=== PATIENT | female | born 1980 | race Caucasian/White ===

== ENCOUNTER 2018-11-07 11:30 | Emergency (ER) | payer OTHER ==
[2018-11-07] MEDS ORDERED: Ketorolac 60 MG/2 ML SDV IM ONE (12:42)
--- NOTE | 2018-11-07 12:42 | EDM.PDOC ---
ED HPI GENERAL MEDICAL PROBLEM - General Chief Complaint: Chest Pain Stated Complaint: CHEST PAIN Time Seen by Provider: 11/07/18 12:39 Source of Information: Reports: Patient History Limitations: Reports: No Limitations - History of Present Illness INITIAL COMMENTS - FREE TEXT/NARRATIVE: PT ARRIVED STATING THAT LAST NITE SHE STARTED TO HURT ON HER RT COSTAL STERNAL AREA. tODAY THAT STARTED TO MOVE ACCROSS HER CHEST. sHE DOES HAVE PAIN WITH DEEP BREATHING. Onset: Other ( STARTED LAST NITE. ) Duration: Hour(s): Location: Reports: Chest, Other ( sHE HAS A HISTORY OF PREVIOS PLEURISY. ) Quality: Reports: Burning Chest Pain Score (Numeric/FACES): 6 - Related Data Allergies Allergy/AdvReac Type Severity Reaction Status Date / Time oxycodone Allergy Vomiting Verified 11/07/18 11:54 Penicillins Allergy Hives Verified 11/07/18 11:54 Home Meds: Home Meds NK [No Known Home Meds] 11/07/18 [History] Past Medical History HEENT History: Reports: Other (See Below) Other HEENT History: narrowed sinus passage Cardiovascular History: Reports: Other (See Below) Other Cardiovascular History: hx of pleurisy [employer] History: Reports: Neurological History: Reports: Concussion Endocrine/Metabolic History: Reports: Hypothyroidism Other Endocrine/Metabolic History: Tad's - Past Surgical History HEENT Surgical History: Reports: Myringotomy w Tube(s) Female Surgical History: Reports: Section Social & Family History - Tobacco Use Smoking Status *Q: Never Smoker - Recreational Drug Use Recreational Drug Use: No ED ROS GENERAL - Review of Systems Review Of Systems: See Below Constitutional: Reports: No Symptoms HEENT: Reports: No Symptoms Respiratory: Reports: Shortness of Breath, Pleuritic Chest Pain Cardiovascular: Reports: No Symptoms Endocrine: Reports: No Symptoms GI/Abdominal: Reports: No Symptoms : Reports: No Symptoms Musculoskeletal: Reports: No Symptoms Skin: Reports: No Symptoms ED EXAM, GENERAL - Physical Exam Exam: See Below Free Text/Narrative:: pt arrived with pain with deep breathing that started last nite and today it was moving accross her entire chest. Exam Limited By: No Limitations General Appearance: Alert, Anxious, Moderate Distress Ears: Normal TMs Nose: Normal Inspection Throat/Mouth: Normal Inspection Head: Atraumatic Neck: Normal Inspection Respiratory/Chest: No Respiratory Distress Cardiovascular: Regular Rate, Rhythm GI/Abdominal: Soft, Non-Tender (Female) Exam: Deferred Rectal (Female) Exam: Deferred Back Exam: Normal Inspection Extremities: Normal Inspection Course - Vital Signs Last Recorded V/S: Last Vital Signs Temp 36.4 C 11/07/18 11:53 Pulse 47 L 11/07/18 12:59 Resp 9 L 11/07/18 12:59 BP 124/67 11/07/18 12:59 Pulse Ox 100 11/07/18 12:59 - Orders/Labs/Meds Labs: Laboratory Tests 11/07/18 11/07/18 11/07/18 Range/Units 12:11 12:11 12:11 WBC 6.8 (4.5-11.0) K/uL RBC 4.99 (3.30-5.50) M/uL Hgb 13.3 (12.0-15.0) g/dL Hct 40.1 (36.0-48.0) % MCV 80 (80-98) fL MCH 27 (27-31) pg MCHC 33 (32-36) % Plt Count 287 (150-400) K/uL Neut % (Auto) 72 H (36-66) % Lymph % (Auto) 17 L (24-44) % Armstrong % (Auto) 9 H (2-6) % Eos % (Auto) 2 (2-4) % Baso % (Auto) 0 (0-1) % Sodium 141 (140-148) mmol/L Potassium 3.9 (3.6-5.2) mmol/L Chloride 104 (100-108) mmol/L Carbon Dioxide 31 (21-32) mmol/L Anion Gap 5.9 (5.0-14.0) mmol/L BUN 9 (7-18) mg/dL Creatinine 0.9 (0.6-1.0) mg/dL Est Cr Clr Drug Dosing 65.72 mL/min Estimated GFR (MDRD) > 60 (>60) Glucose 88 (74-106) mg/dL Calcium 9.8 (8.5-10.1) mg/dL Total Bilirubin 0.4 (0.2-1.0) mg/dL AST 31 (15-37) U/L ALT 62 (12-78) U/L Alkaline Phosphatase 75 (46-116) U/L Troponin I < 0.017 (0.000-0.056) ng/mL C-Reactive Protein < 0.20 (0.0-0.3) mg/dL Total Protein 7.6 (6.4-8.2) g/dL Albumin 3.8 (3.4-5.0) g/dL Globulin 3.8 H (2.3-3.5) g/dL Albumin/Globulin Ratio 1.0 L (1.2-2.2) Meds: Medications Discontinued Medications Generic Name Dose Route Start Last Admin Trade Name Freq PRN Reason Stop Dose Admin Ketorolac Tromethamine 60 mg 11/07/18 12:42 11/07/18 12:58 Toradol IM 11/07/18 12:43 60 mg ONETIME ONE Administration - Re-Assessments/Exams Free Text/Narrative Re-Assessment/Exam: 11/07/18 13:15 pt had a normal ekg, normal chest xray and a normal trop. She clearly had tenderness in the rt costal sternal joint. Departure - Departure Time of Disposition: 13:04 Disposition: Home, Self-Care 01 Condition: Fair Clinical Impression: Chest wall pain Instructions: Chest Wall Pain, [id number] Referrals: PCP,None [Primary Care Provider] - Forms: ED Department Discharge Care Plan Goals: HEAT TO THE ANTERIOR CHEST, TOTODOL 10 MG Q6H PRN FOR PAIN, take with food.
--- NOTE | 2018-11-07 13:33 | CRLCR ---
INDICATION: Chest Pain TECHNIQUE: Chest 2 views. COMPARISON: None FINDINGS: Cardiomediastinal silhouette: Within normal limits. Lungs and pleural spaces: No focal consolidation. No pulmonary edema. No pleural effusion or pneumothorax. Bones and soft tissues: Within normal limits. IMPRESSION: No acute pulmonary process. Dictated by Dari Pappas MD @ 11/07/2018 1:31:52 PM Dictated by: Dari Pappas MD @ 11/07/2018 13:31:57 (Electronically Signed)
== END 2018-11-07 13:36 | disposition home or self-care (01) ==
LOC: JP.ED 11:30
DX: R07.89 Other chest pain (principal); Z88.0 Allergy status to penicillin; Z88.5 Allergy status to narcotic agent
CPT/HCPCS: 36415; 71046; 80053; 84484; 85025; 86140; 93005; 96372; 99285; J1885